=== PATIENT | female | born 1960 | race Hispanic/Latino ===

== ENCOUNTER → 2024-01-14 16:35 | Outpatient (REF) | payer BC, SELFPAY | LOC: WDC 16:35 | PROVIDERS: ATTENDING PHYSICIAN Nurse Practitioner Family | DX: Z12.31 Encounter for screening mammogram for malignant neoplasm of breast (principal) | CPT/HCPCS: 77063; 77067 ==

== ENCOUNTER → 2024-04-19 06:15 | Day surgery (SDC) | payer BC, SELFPAY | LOC: GI 06:15 | PROVIDERS: ATTENDING PHYSICIAN Internal Medicine | DX: Z12.11 Encounter for screening for malignant neoplasm of colon (principal); Z86.0100 Personal history of colon polyps, unspecified; K63.5 Polyp of colon | CPT/HCPCS: 45380; 88305 ==